=== PATIENT | female | born 1965 | race Caucasian/White ===

== ENCOUNTER → 2016-10-24 | Outpatient (CLI) | payer BC ==
--- NOTE | 2016-10-24 22:31 | XCELERA REPORT ---
[address] [address] Transthoracic Echocardiogram Report Name: NETTE ANDERSON Age: 51 yrs Gender: Female : 1965 Patient Status: Outpatient Patient Location: Study Date: 10/24/2016 10:11 AM Height: 61 in Weight: 155 lb BSA: 1.7 m2 Procedure: A complete two-dimensional transthoracic echocardiogram was performed (2D, M-mode, spectral and color flow Doppler). The study was technically adequate with some images being suboptimal in quality. Reason For Study: MURMUR Ordering Physician: MALCOLM TREVIÑO Performed By: Joaquín Rendon Interpretation Summary Left ventricular systolic function is normal. Doppler measurements suggest pseudonormalized left ventricular relaxation, which is associated with grade II/IV or mild to moderate diastolic dysfunction There is mild concentric left ventricular hypertrophy. Wall motion cannot be accurately commented on, but no definite regional wall motion abnormalities noted. The left ventricle is grossly normal size. The right ventricle is grossly normal size. The right ventricular systolic function is normal. There is normal right ventricular wall thickness. Borderline right atrial enlargement. The left atrium is mildly dilated. There is a mild to moderate amount of mitral regurgitation There is no aortic valve stenosis There is a trace amount of aortic regurgitation There is a trace to mild amount of tricuspid regurgitation Right ventricular systolic pressure is at the upper limits of normal The aortic root is not well visualized. The inferior vena cava appeared normal and decreased > 50% with respiration (RAP 5-10 mmHg) There is no pericardial effusion. MMode/2D Measurements \T\ Calculations RVDd: 2.5 cm LVIDd: 5.3 cm FS: 42.8 % Ao root diam: 2.8 cm IVSd: 0.96 cm LVIDs: 3.1 cm EDV(Teich): 137.3 ml LVPWd: 0.96 cm ESV(Teich): 36.5 ml Ao root area: 6.3 cm2 EF(Teich): 73.4 % LA dimension: 4.2 cm Doppler Measurements \T\ Calculations MV E max laure: MV P1/2t max laure: Ao V2 max: LV V1 max P.4 cm/sec 119.5 cm/sec 146.8 cm/sec 6.3 mmHg MV A max laure: MV P1/2t: 43.7 msec Ao max PG: LV V1 max: 120.6 cm/sec 8.6 mmHg 125.6 cm/sec MV E/A: 0.98 MVA(P1/2t): 5.0 cm2 MV dec slope: 801.0 cm/sec2 PA V2 max: TR max laure: RAP systole: 92.1 cm/sec 203.7 cm/sec 10.0 mmHg PA max PG: TR max P.7 mmHg 3.4 mmHg RVSP(TR): 26.7 mmHg Left Ventricle The left ventricle is grossly normal size. There is mild concentric left ventricular hypertrophy. Left ventricular systolic function is normal. Doppler measurements suggest pseudonormalized left ventricular relaxation, which is associated with grade II/IV or mild to moderate diastolic dysfunction. Wall motion cannot be accurately commented on, but no definite regional wall motion abnormalities noted. Right Ventricle The right ventricle is grossly normal size. There is normal right ventricular wall thickness. The right ventricular systolic function is normal. Atria Borderline right atrial enlargement. The left atrium is mildly dilated. Interarterial septum not well visualized and not well dopplered. Cannot comment on ASD/PFO presence. Mitral Valve The mitral valve leaflets are sclerotic, but show no functional abnormalities. There is no mitral valve stenosis. There is a mild to moderate amount of mitral regurgitation. Aortic Valve The aortic valve is grossly normal. There is no aortic valve stenosis. There is a trace amount of aortic regurgitation. Tricuspid Valve The tricuspid valve is not well visualized, but is grossly normal. There is no tricuspid stenosis. There is a trace to mild amount of tricuspid regurgitation. Right ventricular systolic pressure is at the upper limits of normal. Pulmonic Valve The pulmonic valve is not well visualized. Great Vessels The aortic root is not well visualized. The inferior vena cava appeared normal and decreased > 50% with respiration (RAP 5-10 mmHg). Effusions There is no pericardial effusion. : MALCOLM TREVIÑO > [facility]
== END ==
LOC: SP 08:14
PROVIDERS: ATTEND Family Medicine
DX: R01.1 Cardiac murmur, unspecified (principal); Z12.31 Encounter for screening mammogram for malignant neoplasm of breast
CPT/HCPCS: 93306; 77063; G0202; 77067